=== PATIENT | male | born 1965 | race African-American/Black ===

== ENCOUNTER 2017-01-17 23:00 | Emergency (ER) | payer MEDICAID ==
[~2017-01-17] VITALS: Ht 170.2 cm; Wt 94.0 kg
[~2017-01-17 23:00] MED LIST: AUGM875T3 PO; CLON0.1T PO; ERGO1CAP10 PO; METO100T PO; MYCO250C PO; OMEP20TA PO; SIRO1TAB PO; SIRO1TAB3 PO
[2017-01-17 23:02] VITALS: BP 157/79; PULSE 68; RESP 16; TEMP 98.1; O2SAT 98
[2017-01-17] MEDS ORDERED: AUGM875T3 PO (23:32)
--- NOTE | 2017-01-17 23:32 | PD ---
HPI Chief Complaint: Oral / Dental Pain or Problem Time Seen by Provider: 23:28 Travel History International Travel<30 days: No Contact w/Intl Traveler<30days: No Traveled to known affect area: No History of Present Illness HPI Patient is 51-year-old male presenting to emergency for evaluation of left upper tooth pain. Patient states it started 2 days ago. He reports a history of the same 2 months ago which resolved with antibiotics. He states he does not have the money to see a dentist. He states the pain is a 6 out of 10 and states it's shooting. He denies any fever, chills, nausea, vomiting, dysphagia. 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 Reported Meds & Prescriptions Reported Meds & Active Scripts Active Augmentin (Amoxicillin-Clavulanate) 875-125 Mg Tab 1 Tab PO BID Reported Vitamin D (Ergocalciferol) 50,000 Unit Cap 1 Cap PO Q7D Sirolimus 1 Mg Tab 1 Mg PO DAILY Sirolimus 0.5 Mg Tab 0.5 Mg PO EVERY OTHER DAY Omeprazole 20 Mg Tab 20 Mg PO DAILY Mycophenolate (Mycophenolate Mofetil) 250 Mg Cap 250 Mg PO BID Metoprolol Tartrate 100 Mg Tab 100 Mg PO BID Clonidine (Clonidine HCl) 0.1 Mg Tab 0.1 Mg PO BID Review of Systems Except as stated in HPI: all other systems reviewed are Neg HENT: Positive: Dental Difficulties Physical Exam Narrative GENERAL: Well-nourished, well-developed patient. SKIN: Focused skin assessment warm/dry. HEAD: Normocephalic. MOUTH: Mucous membranes moist, no lesions, tongue and gums appear normal. No obvious dental caries noted in the left upper teeth. EYES: No scleral icterus. No injection or drainage. NECK: Supple, trachea midline. No JVD or lymphadenopathy. CARDIOVASCULAR: Regular rate and rhythm without murmurs, gallops, or rubs. RESPIRATORY: Breath sounds equal bilaterally. No accessory muscle use. GASTROINTESTINAL: Abdomen soft, non-tender, nondistended. MUSCULOSKELETAL: No cyanosis, or edema. BACK: Nontender without obvious deformity. No CVA tenderness. Data Data Last Documented VS Vital Signs Date Time Temp Pulse Resp B/P (MAP) Pulse Ox O2 Delivery O2 Flow Rate FiO2 01/17/17 23:02 98.1 68 16 157/79 (105) 98 Room Air MDM Medical Decision Making Medical Screen Exam Complete: Yes Emergency Medical Condition: Yes Medical Record Reviewed: Yes Interpretation(s) Vital Signs Date Time Temp Pulse Resp B/P (MAP) Pulse Ox O2 Delivery O2 Flow Rate FiO2 01/17/17 23:02 98.1 68 16 157/79 (105) 98 Room Air Differential Diagnosis Dentalgia versus dental caries versus abscess versus other Narrative Course Patient presented for evaluation of 2 days of dental pain. There is no obvious abscess or dental caries noted. Patient saw his primary doctor approximate 2 months ago with the same complaint and he was prescribed Augmentin. He is requesting a prescription for an antibiotic. Discussed with patient that dental pain can be from nerve issues as well and he would best be served by following up with a dentist. He was encouraged to trial symptom management with anti-inflammatory medications first. If he started the antibiotic he was encouraged to complete the full course of as prescribed. He verbalized understanding of these instructions. Patient is stable for discharge. Diagnosis Primary Impression: Toothache Referrals: Dentist 3 days Patient Instructions: General Instructions, Toothache (ED) Additional Instructions: Follow-up with a dentist Take acetaminophen or ibuprofen as needed and as directed for pain Obtain [id number] Orajel and use as directed If you start the antibiotic, complete full course as prescribed Return to emergency department for any new or worsening symptoms Med/Other Pt SpecificInfo: Prescription(s) given Scripts Amoxicillin-Clavulanate (Augmentin) 875-125 Mg Tab 1 TAB PO BID for Infection, #20 TAB 0 Refills Prov: Vanessa Borrego 01/17/17 Disposition: 01 DISCHARGE HOME Condition: Stable Vanessa Borrego Jan 17, 2017 23:32
== END 2017-01-18 00:03 | disposition home or self-care (01) ==
LOC: NEPK 23:00
DX: K08.89 Other specified disorders of teeth and supporting structures (principal); I10 Essential (primary) hypertension; N19 Unspecified kidney failure; Z94.0 Kidney transplant status; Z87.448 Personal history of other diseases of urinary system; Z87.19 Personal history of other diseases of the digestive system
CPT/HCPCS: 99283

== ENCOUNTER 2017-11-04 16:17 | Observation (INO) ==
[2017-11-04 18:35] LABS: Baso # (Auto) 0.1 th/mm3 (0.0-0.2); Baso % (Auto) 0.9 % (0.0-2.0); Eos # (Auto) 0.1 th/mm3 (0.0-0.4); Eos % (Auto) 0.7 % (0.0-4.0); Hematocrit 46.3 % (39.0-51.0); Hemoglobin 15.8 gm/dL (13.0-17.0); Lymph # (Auto) 1.4 th/mm3 (1.0-4.8); Lymph % (Auto) 19.8 % (9.0-44.0); Mean Corpuscular HGB Conc 34.2 % (32.0-36.0); Mean Corpuscular Hemoglobin 28.1 pg (27.0-34.0); Mean Corpuscular Volume 82.1 fL (80.0-100.0); Mono # (Auto) 0.6 th/mm3 (0.0-0.9); Mono % (Auto) 8.6 % (0.0-8.0); Neut # (Auto) 5.1 th/mm3 (1.8-7.7); Platelet Count 270 th/mm3 (150-450); Red Blood Count 5.63 mil/mm3 (4.50-5.90); Red Cell Distribution Width 13.6 % (11.6-17.2); White Blood Count 7.3 th/mm3 (4.0-11.0)
[2017-11-04 18:49] LABS: Activated Partial Thrombo Time 29.2 sec (24.3-30.1); Prothrombin Time 9.9 sec (9.8-11.6)
[2017-11-04 18:52] LABS: Alanine Aminotransferase 36 U/L (12-78); Albumin 3.7 g/dL (3.4-5.0); Anion Gap 5 meq/L (5-15); Aspartate Aminotransferase 23 U/L (15-37); Blood Urea Nitrogen 23 mg/dL (7-18); Calcium 8.5 mg/dL (8.5-10.1); Carbon Dioxide 26.6 meq/L (21.0-32.0); Chloride 106 meq/L (98-107); Glomerular Filtration Rate 56 mL/min (>89); Glucose,Random 111 mg/dL (74-106); Sodium 138 meq/L (136-145)
[2017-11-04 18:53] LABS: Potassium 4.8 meq/L (3.5-5.1)
[2017-11-04 18:58] LABS: Alkaline Phosphatase 84 U/L (45-117); Creatine Kinase 149 U/L (39-308); Total Protein 7.9 g/dL (6.4-8.2)
--- NOTE | 2017-11-04 19:23 | XR ---
EXAM DATE: 11/04/2017 7:14 PM EDT AGE/SEX: 52 years / Male INDICATIONS: Chest pain, Shortness of breath. CLINICAL DATA: This is the patient's initial encounter. Patient reports that signs and symptoms have been present for 2 days and indicates a pain score of 5/10. MEDICAL/SURGICAL HISTORY: Hypertension. None. COMPARISON: No prior exams available for comparison. FINDINGS: The heart size is borderline enlarged. There is increased density at the medial right base. The right heart border is not clearly seen. The left lung appears grossly clear. CONCLUSION: Mild increased density at the medial right base which could represent some right middle lobe atelecta sis or consolidation. Electronically signed by: Nba Chang MD 11/04/2017 7:22 PM EDT
[2017-11-04 19:31] LABS: Creatine Kinase MB 0.8 ng/mL (0.5-3.6)
[2017-11-04] MEDS ORDERED: Azithromycin Inj 500 MG in Sodium Chlor 0.9% Inj 250 ML IV.SIG ONE (19:45)
--- NOTE | 2017-11-04 19:51 | ED ---
HPI General Chief complaint: Shortness of Breath/Dyspnea Stated complaint: respiratory/left arm pain Time Seen by Provider: 11/04/17 18:06 Source: patient Mode of arrival: ambulatory Limitations: no limitations History of Present Illness HPI narrative: Patient is a 52 year old male, with history of renal transplant in 2003, who comes in complaining of SOB and chest pain. He says he developed shortness of breath while vacuuming yesterday. He says that today he developed pain to his left arm radiating into his chest. He has not taken anything for his symptoms. He says that movement makes the pain worse. He denies cough or cold. He denies fever or chills. He reports compliance with his antirejection medications. Severity is mild to moderate. Related Data Home Medications Medication Instructions Recorded Confirmed clonidine HCl 0.1 mg PO BID 11/04/17 11/04/17 ergocalciferol (vitamin D2) 50,000 unit PO QWEEK 11/04/17 11/04/17 [Vitamin D2] metoprolol tartrate 25 mg PO BID 11/04/17 11/04/17 mycophenolate mofetil 750 mg PO BID 11/04/17 11/04/17 omeprazole 20 mg PO BID 11/04/17 11/04/17 sirolimus 1 mg/m2 PO DIRECTED 11/04/17 11/04/17 sirolimus 1.5 mg/m2 PO DIRECTED 11/04/17 11/04/17 Allergies Allergy/AdvReac Type Severity Reaction Status Date / Time No Known Allergies Allergy Unverified 11/04/17 16:28 Review of Systems Except as stated in HPI: all other systems reviewed are negative Constitutional Denies chills and Denies fever(s) ENT Denies dizziness Cardiovascular Reports chest pain Respiratory Reports dyspnea Gastrointestinal Denies nausea and Denies vomiting Musculoskeletal Denies myalgias and Denies arthralgias Integumentary/Breasts Denies change in pigmentation and Denies rash Neurologic Denies focal weakness [facility] Medical History Medical History Fistula (Acute) Hypertension (Acute) Surgical History Surgical History Kidney transplant recipient (Acute) Social History Social History Substance History: No History of Abuse Smoking Status: Never smoker How Often Do You Have a Drink Containing Alcohol: Never Recent Travel in [facility] within the Last 8 Weeks: No Recent Out of Country Travel within the Last 8 Weeks: No Immunization History Tetanus Immunization: <5 Years Hx Influenza Vaccine This Season: No Exam Narrative Exam Narrative: GENERAL: Awake and alert, in no acute distress. SKIN: Focused skin assessment warm/dry. HEAD: Atraumatic. Normocephalic. EYES: Pupils equal and round. No scleral icterus. ENT: Mucous membranes pink and moist. NECK: Trachea midline. No JVD. CARDIOVASCULAR: Regular rate and rhythm. No murmur appreciated. RESPIRATORY: No accessory muscle use. Clear to auscultation. Breath sounds equal bilaterally. GASTROINTESTINAL: Abdomen soft, non-tender, nondistended. MUSCULOSKELETAL: No obvious deformities. No clubbing. No cyanosis. No edema. NEUROLOGICAL: Awake and alert. No obvious cranial nerve deficits. Motor grossly within normal limits. Normal speech. PSYCHIATRIC: Appropriate mood and affect; insight and judgment normal. Course Hospital Course: IV established, labs sent. Chest x-ray ordered. Given aspirin. Reevaluation(s) Reevaluation #1: Patient resting comfortably. He says the pain worsened when he had to exert effort to sit up. Informed of his results. Time: 19:45 Initial Documented Vital Signs Temperature 97.8 F 11/04/17 16:23 Pulse Rate 59 L 11/04/17 16:23 Respiratory Rate 16 11/04/17 16:23 Blood Pressure 149/83 H 11/04/17 16:23 Pulse Oximetry 99 11/04/17 16:23 Last Documented Vital Signs Temperature 97.8 F 11/04/17 16:23 Pulse Rate 60 11/04/17 16:28 Respiratory Rate 16 11/04/17 16:28 Blood Pressure 150/68 H 11/04/17 16:28 Pulse Oximetry 100 11/04/17 18:25 Medical Decision Making [facility] Narrative Medical decision making narrative: Patient is a 52-year-old male who comes in complaining of shortness of breath with chest pain. Exam shows no acute abnormalities. IV established, labs sent. Patient connected to the import export coordinator. Labs show a creatinine of 1.6. I discussed this with the patient, he says he believes his last creatinine was 1.5. Chest x-ray is concerning for consolidation in the right middle lobe. Patient treated with antibiotics due to the fact that he is on antirejection meds and is immunocompromised. He was given an aspirin. He will be admitted for ACS rule out and treatment of pneumonia. Differential Diagnosis Differential Diagnosis: ACS vs NSTEMI vs pneumonia vs STEMI vs pneumothorax Medical Records Medical records reviewed: Yes I reviewed the patient's medical records. Lab Data Lab results reviewed: Yes I reviewed the patient's lab results. Result diagrams: 11/04/17 18:17 11/04/17 18:17 Lab Results 11/04/17 11/04/17 11/04/17 Range/Units 18:17 18:17 18:17 WBC 7.3 (4.0-11.0) th/mm3 RBC 5.63 (4.50-5.90) mil/mm3 Hgb 15.8 (13.0-17.0) gm/dL Hct 46.3 (39.0-51.0) % MCV 82.1 (80.0-100.0) fL MCH 28.1 (27.0-34.0) pg MCHC 34.2 (32.0-36.0) % RDW 13.6 (11.6-17.2) % Plt Count 270 (150-450) th/mm3 MPV 9.0 (7.0-11.0) fL Neut % (Auto) 70.0 (16.0-70.0) % Lymph % (Auto) 19.8 (9.0-44.0) % [place] % (Auto) 8.6 H (0.0-8.0) % Eos % (Auto) 0.7 (0.0-4.0) % Baso % (Auto) 0.9 (0.0-2.0) % Neut # (Auto) 5.1 (1.8-7.7) th/mm3 Lymph # (Auto) 1.4 (1.0-4.8) th/mm3 [place] # (Auto) 0.6 (0.0-0.9) th/mm3 Eos # (Auto) 0.1 (0.0-0.4) th/mm3 Baso # (Auto) 0.1 (0.0-0.2) th/mm3 WBC Differential . Differential Comment Auto diff final PT 9.9 (9.8-11.6) sec INR 1.0 Ratio APTT 29.2 (24.3-30.1) sec Sodium (136-145) meq/L Potassium (3.5-5.1) meq/L Chloride (98-107) meq/L Carbon Dioxide (21.0-32.0) meq/L Anion Gap (5-15) meq/L BUN (7-18) mg/dL Creatinine (0.60-1.30) mg/dL Estimated GFR (>89) mL/min Random Glucose (74-106) mg/dL Calcium (8.5-10.1) mg/dL Total Bilirubin (0.2-1.0) mg/dL AST (15-37) U/L ALT (12-78) U/L Alkaline Phosphatase (45-117) U/L Total Creatine Kinase (39-308) U/L CK-MB (CK-2) (0.5-3.6) ng/mL Troponin I (0.02-0.05) ng/mL B-Natriuretic Peptide 19 (0-100) pg/mL Total Protein (6.4-8.2) g/dL Albumin (3.4-5.0) g/dL 11/04/17 Range/Units 18:17 WBC (4.0-11.0) th/mm3 RBC (4.50-5.90) mil/mm3 Hgb (13.0-17.0) gm/dL Hct (39.0-51.0) % MCV (80.0-100.0) fL MCH (27.0-34.0) pg MCHC (32.0-36.0) % RDW (11.6-17.2) % Plt Count (150-450) th/mm3 MPV (7.0-11.0) fL Neut % (Auto) (16.0-70.0) % Lymph % (Auto) (9.0-44.0) % [place]ster % (Auto) (0.0-8.0) % Eos % (Auto) (0.0-4.0) % Baso % (Auto) (0.0-2.0) % Neut # (Auto) (1.8-7.7) th/mm3 Lymph # (Auto) (1.0-4.8) th/mm3 [place]ster # (Auto) (0.0-0.9) th/mm3 Eos # (Auto) (0.0-0.4) th/mm3 Baso # (Auto) (0.0-0.2) th/mm3 WBC Differential Differential Comment PT (9.8-11.6) sec INR Ratio APTT (24.3-30.1) sec Sodium 138 (136-145) meq/L Potassium 4.8 (3.5-5.1) meq/L Chloride 106 (98-107) meq/L Carbon Dioxide 26.6 (21.0-32.0) meq/L Anion Gap 5 (5-15) meq/L BUN 23 H (7-18) mg/dL Creatinine 1.60 H (0.60-1.30) mg/dL Estimated GFR 56 L (>89) mL/min Random Glucose 111 H (74-106) mg/dL Calcium 8.5 (8.5-10.1) mg/dL Total Bilirubin 0.6 (0.2-1.0) mg/dL AST 23 (15-37) U/L ALT 36 (12-78) U/L Alkaline Phosphatase 84 (45-117) U/L Total Creatine Kinase 149 (39-308) U/L CK-MB (CK-2) 0.8 (0.5-3.6) ng/mL Troponin I Less than 0.02 L (0.02-0.05) ng/mL B-Natriuretic Peptide (0-100) pg/mL Total Protein 7.9 (6.4-8.2) g/dL Albumin 3.7 (3.4-5.0) g/dL Imaging Data Radiologist's impression: Chest X-Ray 11/04/17 18:15 CONCLUSION: Mild increased density at the medial right base which could represent some right middle lobe atelectasis or consolidation. ECG Data EKG Prior to Arrival: No Attestation: I personally reviewed and interpreted this ECG as follows: Interpretation: ECG shows sinus bradycardia at 55, no ST elevation or depression , normal intervals Discharge Plan Discharge Disposition Patient Disposition: 30 Still Patient Discharge Condition Condition: Stable Discharge Details Diagnosis: Community acquired pneumonia, Chest pain Physicians Team ED Provider: Ingris Nunn Primary Care Provider: Kaz Hamilton Rxs /Orders / Referrals /Forms Prescriptions: No Action sirolimus 1 mg Tablet 1 mg/m2 PO DIRECTED RF: 0 sirolimus 1 mg Tablet 1.5 mg/m2 PO DIRECTED RF: 0 clonidine HCl 0.1 mg Tablet 0.1 mg PO BID RF: 0 omeprazole 20 mg Capsule,Delayed Release(Dr/Ec) 20 mg PO BID RF: 0 ergocalciferol (vitamin D2) [Vitamin D2] 50,000 unit Capsule 50,000 unit PO QWEEK RF: 0 metoprolol tartrate 25 mg Tablet 25 mg PO BID RF: 0 mycophenolate mofetil 250 mg Capsule 750 mg PO BID RF: 0 Discharge Interventions Interventions: Vital Signs Last Done: 11/04/17 16:28 Status ED Status: With Doctor
[2017-11-04] MEDS ORDERED: Acetaminophen 325 MG Tablet PO PRN (20:35)
[2017-11-04] MEDS ORDERED: Temazepam 15 MG Capsule PO PRN (20:35)
--- NOTE | 2017-11-04 20:46 | P.HPFP ---
History of Present Illness Primary Care Physician: Kaz Hamilton MD, R3 <Zoran Jenkins - 11/06/17 12:30> Kaz Hamilton MD, R3 <Toñito Bradford - 11/04/17 20:46> Chief Complaint: SOB and chest pain <Toñito Bradford 11/04/17 21:34> History of Present Illness: 52-year-old male with a history of hypertension, prediabetes and history of renal transplant in 2007 presenting to the emergency department with complaints of chest pain and shortness of breath. Patient states he was in his normal state of health until the day prior to presentation when he suddenly developed shortness of breath after vacuuming/cleaning his house. He states that he felt like he could not catch his breath but he otherwise felt fine at that time. He states that today he continued to feel somewhat short of breath and then developed left arm pain this morning. Described it as sharp in nature and would last for several seconds. This happened twice before noon and then has become more frequent during the afternoon/evening and now involves the left side of his chest as well. States it is happening every 30-45 minutes now. Seems to be worse when he sitting upright. He denies any exertional chest pain or dyspnea prior to these last 2 days. States that he is normally able to walk up 2 flights of stairs without getting short of breath. Any fever, chills, headache, nausea or vomiting, abdominal pain. As he does endorse blurry vision that has been happening for the last month or so. Patient states his daughter has a cold but otherwise no significant sick contacts that he is aware of. He does not endorse clear rhinorrhea currently. <Toñito Bradford - 11/04/17 21:34> - Diagnosis (1) Chest pain (2) SOB (shortness of breath) (3) ARELI (acute kidney injury) (4) History of renal transplant (5) Hypertension (6) Prediabetes (7) Nutrition, metabolism, and development symptoms <Toñito Bradford - 11/04/17 20:59> Review of Systems Constitutional: Denies body ache(s), Denies chills, Denies fever(s) <Toñito Bradford 11/04/17 21:34> Eyes: Reports blurry vision, Denies blind spots, Denies pain <[facility] 11/04/17 21:34> Ears, Nose, Mouth, and Throat: Reports nasal discharge, Denies sore throat < [facility] 11/04/17 21:34> Cardiovascular: Reports chest pain, Reports shortness of breath, Denies chest pain with activity, Denies excessive sweating, Denies lightheadedness, Denies shortness of breath when lying down <[facility] 11/04/17 21:34> Respiratory: Denies cough, Denies coughing up blood, Denies wheezing <[facility] 11/04/17 21:34> Gastrointestinal: Denies abdominal pain, Denies black, tarry stools, Denies bright, red blood in stools, Denies nausea, Denies vomiting <[facility] 11/04/17 21:34> Genitourinary: Denies blood in urine, Denies difficulty urinating <[facility] 11/04/17 21:34> Musculoskeletal: Reports back pain (chronic), Denies muscle weakness <[facility] 11/04/17 21:34> Skin/Breast: Denies redness, Denies skin ulcer <[facility] 11/04/17 21 :34> Neurologic: Denies frequent falls, Denies headache(s), Denies sensory deficit <[facility] 11/04/17 21:34> Endocrine: Reports increased thirst, Denies increased urination <[facility] 11/04/17 21:34> [facility] - History History Provided By: [facility] 20:46[facility] - Medical History Medical History: Medical History (Last Reviewed 11/04/17 @ 21:06 by Toñito Bradford MD, R2) Hypertension (Acute) Fistula Prediabetes <Zoran Jenkins - 11/06/17 12:30> Medical History (Last Reviewed 11/04/17 @ 21:06 by Toñito Bradford MD, R2) Hypertension (Acute) Fistula Prediabetes [facility] 11/04/17 21:34> - Surgical History Surgical History: Surgical History (Last Reviewed 11/04/17 @ 21:06 by Toñito Bradford MD, R2) Kidney transplant recipient <Zoran Jenkins - 11/06/17 12:30> Surgical History (Last Reviewed 11/04/17 @ 21:06 by Toñito Bradford MD, R2) Kidney transplant recipient <Toñito Bradford 11/04/17 21:34> - Family History Family History: Family History (Last Updated 11/04/17 @ 21:06 by Toñito Bradford MD, R2) Other Family history of diabetes mellitus Family history of hypertension <Zoran Jenkins - 11/06/17 12:30> Family History (Last Updated 11/04/17 @ 21:06 by Toñito Bradford MD, R2) Other Family history of diabetes mellitus Family history of hypertension <Toñito Bradford 11/04/17 21:34> - Tobacco History Smoking Status: Never smoker <Toñito Bradford 11/04/17 20:46> - Alcohol History How Often Do You Have a Drink Containing Alcohol: Never <Toñito Bradford 20:46> - Substance Use History Substance History: No History of Abuse <Toñito Bradford 11/04/17 20:46> - Travel History Recent Travel in the [facility] Within the Last 8 Weeks: No <Toñito Bradford 11/04 20:46> Recent Travel Out of the Country Within the Last 8 Weeks: No <Toñito Bradford 11/04/17 20:46> - Immunization History Tetanus Immunization: <5 Years <Toñito Bradford 11/04/17 20:46> Hx Influenza Vaccine This Season: No <Toñito Bradford 11/04/17 20:46> Medications and Allergies Allergies Allergy/AdvReac Type Severity Reaction Status Date / Time No Known Allergies Allergy Unverified 11/04/17 16:28 <Zoran Jenkins - 11/06/17 12:30> Home Medications Medication Instructions Recorded Confirmed Type clonidine HCl 0.1 mg PO BID 11/04/17 11/04/17 History ergocalciferol (vitamin D2) 50,000 unit PO QWEEK 11/04/17 11/04/17 History [Vitamin D2] metoprolol tartrate 25 mg PO BID 11/04/17 11/04/17 History mycophenolate mofetil 750 mg PO BID 11/04/17 11/04/17 History omeprazole 20 mg PO BID 11/04/17 11/04/17 History sirolimus 1 mg PO DIRECTED 11/04/17 11/04/17 History sirolimus 1.5 mg PO DIRECTED 11/04/17 11/04/17 History <Zoran Jenkins - 11/06/17 12:30> Active Medications: Active Medications Acetaminophen (Tylenol) 650 mg PO Q4H PRN PRN Reason: Temp > 100.4 Al Hydroxide/Mg Hydroxide (Milk Of Magnamalia Liq) 30 ml PO Q12H PRN PRN Reason: Mild Constipation Enoxaparin Sodium (Lovenox Inj) 30 mg SQ Q24H GILMA Sodium Chloride (1/2 Normal Saline Inj) 1,000 mls @ 75 mls/hr IV.CONT .[id number] GILMA Azithromycin 500 mg/ Sodium (Chloride) 250 mls @ 250 mls/hr IV.SIG Q24H GILMA Ceftriaxone Sodium 1,000 mg/ (Sodium Chloride) 100 mls @ 200 mls/hr IV.SIG Q24H GILMA Ondansetron HCl (Zofran Inj) 4 mg IV.PUSH Q6H PRN PRN Reason: NAUSEA OR VOMITING Senna/Docusate Sodium (Sissy-Colace) 1 tab PO BID GILMA Sennosides (Senokot) 17.2 mg PO Q12H PRN PRN Reason: Moderate Constipation Sodium Chloride (Ns Flush) 2 ml IV.FLUSH UNSCH PRN PRN Reason: FLUSH AFTER USING IV ACCESS Temazepam (Restoril) 15 mg PO HS PRN PRN Reason: INSOMNIA <Toñito Bradford - 11/04/17 20:46> Exam Vital signs: Vital Signs 11/04/17 16:23 11/04/17 16:28 11/04/17 18:25 Temperature 97.8 F Pulse Rate 59 L 60 Respiratory Rate 16 16 Blood Pressure 149/83 H 150/68 H Pulse Oximetry 99 100 100 11/04/17 20:37 Temperature Pulse Rate Respiratory Rate 18 Blood Pressure Pulse Oximetry Intake & Output 11/04/17 11/04/17 11/05/17 06:59 18:59 06:59 Weight 214 kg 97.069 kg <Toñito Bradford - 11/04/17 20:46> Narrative: GENERAL: -[place] male resting comfortably in bed in no acute distress. SKIN: Warm and dry. No lesions or wounds appreciated HEAD: Normocephalic, atraumatic EYES: No scleral icterus. No injection or drainage. NECK: Supple, trachea midline. No JVD or lymphadenopathy. CARDIOVASCULAR: Rate in the 50s-60s, regular rhythm without murmurs, gallops, or rubs. No chest wall tenderness RESPIRATORY: Breath sounds equal bilaterally. No accessory muscle use. No wheezes or crackles appreciated GASTROINTESTINAL: Abdomen soft, non-tender, nondistended. MUSCULOSKELETAL: No cyanosis, or edema. BACK: Nontender without obvious deformity. No CVA tenderness. NEURO: Upper extremity strength is equal and intact bilaterally. No sensation deficits in the left arm. Shoulder shrug equal bilaterally. Alert and oriented 3 with no obvious cranial nerve deficits <Toñito Bradford - 11/04/17 21:34> Results - Labs Result diagrams: 11/05/17 06:20 11/05/17 06:20 <Zoran Jenkins - 11/06/17 12:30> Abnormal lab results 11/04/17 11/04/17 Range/Units 18:17 18:17 Sargent % (Auto) 8.6 H (0.0-8.0) % BUN 23 H (7-18) mg/dL Creatinine 1.60 H (0.60-1.30) mg/dL Estimated GFR 56 L (>89) mL/min Random Glucose 111 H (74-106) mg/dL Troponin I Less than 0.02 L (0.02-0.05) ng/mL Short CBC 11/04/17 Range/Units 18:17 WBC 7.3 (4.0-11.0) th/mm3 Hgb 15.8 (13.0-17.0) gm/dL Hct 46.3 (39.0-51.0) % Plt Count 270 (150-450) th/mm3 BMP 11/04/17 18:17 Sodium 138 Potassium 4.8 Chloride 106 Carbon Dioxide 26.6 BUN 23 H Creatinine 1.60 H Calcium 8.5 Cardiac Enzymes 11/04/17 Range/Units 18:17 Total Creatine Kinase 149 (39-308) U/L CK-MB (CK-2) 0.8 (0.5-3.6) ng/mL Troponin I Less than 0.02 L (0.02-0.05) ng/mL Liver Function 11/04/17 Range/Units 18:17 Total Bilirubin 0.6 (0.2-1.0) mg/dL AST 23 (15-37) U/L ALT 36 (12-78) U/L Alkaline Phosphatase 84 (45-117) U/L Albumin 3.7 (3.4-5.0) g/dL <Toñito Bradford Lakhwinder - 11/04/17 20:46> - Imaging Impressions Chest X-Ray 11/04/17 18:15 CONCLUSION: Mild increased density at the medial right base which could represent some right middle lobe atelectasis or consolidation. <Toñito Bradford - 11/04/17 20:46> Caprini VTE Risk Assessment Caprini VTE Risk Assessment: Moderate/High Risk (score >= 2) <Toñito Bradford - 11/04/17 21:34> Caprini Risk Assessment Model: Point Value = 1 Point Value = 2 Point Value = 3 Point Value = 5 Age 41-60 Minor surgery BMI > 25 kg/m2 Swollen legs Varicose veins or History of unexplained or recurrent spontaneous Oral contraceptives or hormone replacement Sepsis (< 1 month) Serious lung disease, including pneumonia (< 1 month) Abnormal pulmonary function Acute myocardial infarction Congestive heart failure (< 1 month) History of inflammatory bowel disease Medical patient at bed rest Age 61-74 Arthroscopic surgery Major open surgery (> 45 min) Laparoscopic surgery (> 45 min) Malignancy Confined to bed (> 72 hours) Immobilizing plaster cast Central venous access Age >= 75 History of VTE Family history of VTE Factor V Leiden Prothrombin [id number] Lupus anticoagulant Anticardiolipin antibodies Elevated serum homocysteine Heparin-induced thrombocytopenia Other congenital or acquired thrombophilia Stroke (< 1 month) Elective arthroplasty Hip, pelvis, or leg fracture Acute spinal cord injury (< 1 month) <Zoran Jenkins - 11/06/17 12:30> Point Value = 1 Point Value = 2 Point Value = 3 Point Value = 5 Age 41-60 Minor surgery BMI > 25 kg/m2 Swollen legs Varicose veins or History of unexplained or recurrent spontaneous Oral contraceptives or hormone replacement Sepsis (< 1 month) Serious lung disease, including pneumonia (< 1 month) Abnormal pulmonary function Acute myocardial infarction Congestive heart failure (< 1 month) History of inflammatory bowel disease Medical patient at bed rest Age 61-74 Arthroscopic surgery Major open surgery (> 45 min) Laparoscopic surgery (> 45 min) Malignancy Confined to bed (> 72 hours) Immobilizing plaster cast Central venous access Age >= 75 History of VTE Family history of VTE Factor V Leiden Prothrombin [id number] Lupus anticoagulant Anticardiolipin antibodies Elevated serum homocysteine Heparin-induced thrombocytopenia Other congenital or acquired thrombophilia Stroke (< 1 month) Elective arthroplasty Hip, pelvis, or leg fracture Acute spinal cord injury (< 1 month) <Toñito Bradford - 11/04/17 21:34> Prophylaxis Regimen: Total Risk Factor Score Risk Level Prophylaxis Regimen 0-1 Low Early ambulation 2 Moderate Order ONE of the following: *Sequential Compression Device (SCD) *Heparin 5000 units SQ BID 3-4 Higher Order ONE of the following medications: *Heparin 5000 units SQ TID *Enoxaparin/Lovenox 40 mg SQ daily (WT < 150 kg, CrCl > 30 mL/min) *Enoxaparin/Lovenox 30 mg SQ daily (WT < 150 kg, CrCl > 10-29 mL/min) *Enoxaparin/Lovenox 30 mg SQ BID (WT < 150 kg, CrCl > 30 mL/min) AND/OR *Sequential Compression Device (SCD) 5 or more Highest Order ONE of the following medications: *Heparin 5000 units SQ TID (Preferred with Epidurals) *Enoxaparin/Lovenox 40 mg SQ daily (WT < 150 kg, CrCl > 30 mL/min) *Enoxaparin/Lovenox 30 mg SQ daily (WT < 150 kg, CrCl > 10-29 mL/min) *Enoxaparin/Lovenox 30 mg SQ BID (WT < 150 kg, CrCl > 30 mL/min) AND *Sequential Compression Device (SCD) <Zoran Jenkins - 11/06/17 12:30> Total Risk Factor Score Risk Level Prophylaxis Regimen 0-1 Low Early ambulation 2 Moderate Order ONE of the following: *Sequential Compression Device (SCD) *Heparin 5000 units SQ BID 3-4 Higher Order ONE of the following medications: *Heparin 5000 units SQ TID *Enoxaparin/Lovenox 40 mg SQ daily (WT < 150 kg, CrCl > 30 mL/min) *Enoxaparin/Lovenox 30 mg SQ daily (WT < 150 kg, CrCl > 10-29 mL/min) *Enoxaparin/Lovenox 30 mg SQ BID (WT < 150 kg, CrCl > 30 mL/min) AND/OR *Sequential Compression Device (SCD) 5 or more Highest Order ONE of the following medications: *Heparin 5000 units SQ TID (Preferred with Epidurals) *Enoxaparin/Lovenox 40 mg SQ daily (WT < 150 kg, CrCl > 30 mL/min) *Enoxaparin/Lovenox 30 mg SQ daily (WT < 150 kg, CrCl > 10-29 mL/min) *Enoxaparin/Lovenox 30 mg SQ BID (WT < 150 kg, CrCl > 30 mL/min) AND *Sequential Compression Device (SCD) <Toñito Bradford - 11/04/17 20:46> Assessment and Plan - Assessment (1) Chest pain Code(s): R07.9 - Chest pain, unspecified Status: Acute Plan: 1 day history of left-sided chest/left arm pain is described as sharp and episodic in nature. EKG on admission showed sinus bradycardia. Initial troponin was negative. Chest x-ray showed mild increased density at the medial right base which could represent right middle lobe atelectasis or consolidation Received aspirin 162 mg 1 in the ED No chest wall tenderness on exam Admitting observation overnight for ACS rule out. We will continue to trend troponins and EKGs every 6 hours (2) SOB (shortness of breath) Code(s): R06.02 - Shortness of breath Status: Acute Plan: 2 day history of shortness of breath that occurred after patient was cleaning his home Describes as "unable to catch his breath" No significant cough but has had a sick contact with his daughter who has a suspected viral URI Chest x-ray findings as above Received 1 g IV Rocephin, azithromycin 500 mg IV once in the ED Vital signs within normal limits, appropriate oxygen saturation on room air and no leukocytosis Will continue to treat for possible community acquired pneumonia with Rocephin and azithromycin Incentive spirometer Low suspicion for PE as patient is not tachycardic, has not been sedentary and is oxygenating at 99-100% on room air (3) ARELI (acute kidney injury) Code(s): N17.9 - Acute kidney failure, unspecified Status: Acute Plan: 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" Most recent creatinine in our records are from 2013 and were 1.36 at that time Creatinine of 1.60, BUN 23 on admission labs Patient states that his most recent creatinine several months ago was 1.4 Could be acute on chronic kidney injury given his history of renal transplant Will give IV fluids normal saline at 75 mL/h Repeat BMP in the morning (4) History of renal transplant Code(s): Z94.0 - Kidney transplant status Status: Acute Plan: Renal transplant in 2007 Continuing home sirolimus and mycophenolate See plan for ARELI as above (5) Hypertension Code(s): I10 - Essential (primary) hypertension Status: Acute Plan: Known history of hypertension Blood pressures elevated to 150/68 on admission Continuing home clonidine 0.1 mg p.o. twice daily and metoprolol 25 mg p.o. twice daily (6) Prediabetes Code(s): R73.03 - Prediabetes Status: Acute Plan: Reported history of prediabetes Stated that he has been controlling it to this point with diet and exercise Did endorse some increased thirst Random glucose of 111 on admission Low suspicion for hyperglycemia related symptoms currently (7) Nutrition, metabolism, and development symptoms Code(s): R63.8 - Other symptoms and signs concerning food and fluid intake Status: Acute Plan: Renal diet Normal saline IV fluids at 75 mL/h No electrolyte abnormalities Lovenox 30 mg daily for DVT prophylaxis <Toñito Bradford - 11/04/17 20:59> - Assessment and Plan 52-year-old male with history of hypertension, prediabetes, renal transplant presenting to the emergency room with chest pain or shortness of breath. Chest x-ray on admission showed a right-sided consolidation versus atelectasis. Initial ACS workup was negative. Admitting to observation for ACS rule out and treatment of a possible community-acquired pneumonia. <Toñito Bradford - 11/04/17 21:34> Discussed Condition With: Dr. Nunn - ED physician <Toñito Bradford 11/04/17 21:34> - Attending Attestation See the residents documentation for details. I saw and evaluated the patient regarding the aquino portions of this evaluation and agree with the residents findings and plans as written. Parts of this note were created using [employer] voice recognition software program. While efforts were made to correct any mistakes made by this software, some mistakes, errors, and omissions may remain in the final note that were not caught when the note was originally created. Plan of care was discussed and agreed upon with the patient as specifically documented in the above note. An opportunity to ask questions with explanation was provided. Patient voiced understanding on all information reviewed and discussed. <GregoryZoran - 11/06/17 12:30> <Toñito Bradford B - Last Filed: 11/04/17 20:59> (1) Chest pain Qualifiers: Chest pain type: unspecified Qualified Code(s): R07.9 - Chest pain, unspecified <Toñito Bradford B - Last Filed: 11/04/17 20:59> (1) Chest pain Qualifiers: Chest pain type: unspecified Qualified Code(s): R07.9 - Chest pain, unspecified
[2017-11-04] MEDS ORDERED: Enoxaparin Inj 30 MG/0.3 ML Syringe SQ SCH (21:00)
[2017-11-04] MEDS ORDERED: Sodium Chloride 0.45 % Inj 1,000 ML IV.CONT SCH (21:00)
[2017-11-04] MEDS: Senna/Docusate Sodium 8.6/50 MG Tablet PO SCH (23:00)
[2017-11-05 07:24] LABS: Baso % (Auto) 0.7 % (0.0-2.0); Eos % (Auto) 0.8 % (0.0-4.0); Hematocrit 44.4 % (39.0-51.0); Hemoglobin 15.3 gm/dL (13.0-17.0); Lymph # (Auto) 1.5 th/mm3 (1.0-4.8); Lymph % (Auto) 24.3 % (9.0-44.0); Mean Corpuscular HGB Conc 34.5 % (32.0-36.0); Mean Corpuscular Hemoglobin 27.9 pg (27.0-34.0); Mean Corpuscular Volume 81.1 fL (80.0-100.0); Mean Platelet Volume 8.9 fL (7.0-11.0); Mono # (Auto) 0.6 th/mm3 (0.0-0.9); Mono % (Auto) 9.7 % (0.0-8.0); Neut % (Auto) 64.5 % (16.0-70.0); Platelet Count 222 th/mm3 (150-450); Red Blood Count 5.48 mil/mm3 (4.50-5.90); Red Cell Distribution Width 13.4 % (11.6-17.2); White Blood Count 6.2 th/mm3 (4.0-11.0)
[2017-11-05 07:41] LABS: Calcium 8.2 mg/dL (8.5-10.1); Carbon Dioxide 26.1 meq/L (21.0-32.0); Potassium 4.1 meq/L (3.5-5.1)
[2017-11-05] MEDS ORDERED: Metoprolol Tartrate 25 MG Tablet PO SCH (09:00)
[2017-11-05] MEDS ORDERED: Pantoprazole Sodium 20 MG DR Tablet PO SCH (09:00)
[2017-11-05] MEDS ORDERED: SIROLIMUS 0.5 MG PO SCH (09:00)
[2017-11-05] MEDS ORDERED: Mycophenolate Mofetil 250 MG Capsule PO SCH (09:00)
[2017-11-05 09:22] LABS: Lymphocytes 20 % (9-44); Monocytes 8 % (0-8); Myelocytes 1 % (0-0); Platelet Estimate Normal (Normal); Platelet Morphology Normal (Normal)
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
[2017-11-05] MEDS: Senna/Docusate Sodium 8.6/50 MG Tablet PO SCH (11:08)
--- NOTE | 2017-11-05 14:58 | ECG ---
Date Performed: 11/05/2017 Time Performed: 01:35:40 PTAGE: 52 years EKG: SINUS BRADYCARDIA Since previous tracing, no significant change noted BORDERLINE ECG PREVIOUS TRACING : 11/04/2017 17.46 DOCTOR: Luis Hall Interpretating Date/Time 11/05/2017 14:57:58
--- NOTE | 2017-11-05 14:58 | ECG ---
Date Performed: 11/04/2017 Time Performed: 17:46:27 PTAGE: 52 years EKG: SINUS BRADYCARDIA Since previous tracing, no significant change noted BORDERLINE ECG PREVIOUS TRACING : 05/30/2009 23.43 DOCTOR: Luis Hall Interpretating Date/Time 11/05/2017 14:57:47
--- NOTE | 2017-11-05 14:59 | ECG ---
Date Performed: 11/05/2017 Time Performed: 06:00:28 PTAGE: 52 years EKG: SINUS BRADYCARDIA Since previous tracing, no significant change noted BORDERLINE ECG PREVIOUS TRACING : 11/05/2017 01.35 DOCTOR: Luis Hall Interpretating Date/Time 11/05/2017 14:58:08
[2017-11-05] MEDS ORDERED: Azithromycin Inj 500 MG in Sodium Chlor 0.9% Inj 250 ML IV.SIG SCH (21:00)
== END 2017-11-05 16:14 | disposition home or self-care (01) ==
LOC: NEDA 16:17 → NEPGCP 16:17 → NEPD 16:17 → NEDA 21:34 → NEPGCP 22:09
PROVIDERS: ADMIT Family Medicine; ATTEND Family Medicine
DX: R00.1 Bradycardia, unspecified; N17.9 Acute kidney failure, unspecified; M79.602 Pain in left arm; Z79.899 Other long term (current) drug therapy; I10 Essential (primary) hypertension; R07.89 Other chest pain; R73.03 Prediabetes; Z94.0 Kidney transplant status; J18.9 Pneumonia, unspecified organism